=== PATIENT | female | born 1985 ===

== ENCOUNTER 2019-01-30 04:50 | Outpatient (CLI) | payer BC | END 2019-01-30 23:59 | disposition home or self-care (01) | LOC: DIABETIC 04:50 | PROVIDERS: ATTEND Specialist | DX: O24.419 Gestational diabetes mellitus in pregnancy, unspecified control (principal); Z88.2 Allergy status to sulfonamides; Z3A.00 Weeks of gestation of pregnancy not specified | CPT/HCPCS: G0108 ==

== ENCOUNTER 2019-02-22 01:00 | Outpatient (CLI) | payer BC | END 2019-02-22 23:59 | disposition home or self-care (01) | LOC: DIABETIC 01:00 | PROVIDERS: ATTEND Specialist | DX: O24.419 Gestational diabetes mellitus in pregnancy, unspecified control (principal); Z3A.00 Weeks of gestation of pregnancy not specified | CPT/HCPCS: G0108 ==